=== PATIENT | female | born 1960 | race Two or more races ===

== ENCOUNTER 2018-08-11 07:50 | Outpatient (CLI) | payer OTHER | END 2018-08-11 08:00 | disposition home or self-care (01) | LOC: SONOGRAMA 07:50 | DX: R10.2 Pelvic and perineal pain (principal) ==

== ENCOUNTER 2018-11-09 09:26 | Outpatient (CLI) | payer OTHER | END 2018-11-09 09:44 | disposition home or self-care (01) | LOC: LAB 09:26 | DX: D64.89 Other specified anemias (principal); N39.0 Urinary tract infection, site not specified; I10 Essential (primary) hypertension; N95.2 Postmenopausal atrophic vaginitis; N84.0 Polyp of corpus uteri ==

== ENCOUNTER 2018-11-22 05:55 | Day surgery (SDC) | payer OTHER ==
[~2018-11-22 05:55] MED LIST: ASPIR 8181 MG PO; EXFORGE 5-3201 EACH PO; SIMVASTATIN20 MG PO; TOPROL XL25 MG PO
[2018-11-22] MEDS ORDERED: EC-NAPROSYN375 MG PO (08:55)
== END 2018-11-22 13:35 | disposition home or self-care (01) ==
LOC: CIR.AMB 05:55
DX: D25.0 Submucous leiomyoma of uterus (principal); N84.0 Polyp of corpus uteri

== ENCOUNTER 2019-04-15 12:22 | Outpatient (CLI) | payer OTHER ==
[~2019-04-15 12:22] MED LIST changes: +EC-NAPROSYN375 MG PO
== END 2019-04-15 12:39 | disposition home or self-care (01) ==
LOC: RAD 12:22
DX: M25.511 Pain in right shoulder (principal)